=== PATIENT | female | born 1990 | race Caucasian/White ===

== ENCOUNTER 2023-08-19 14:31 | Inpatient (IN) ==
[2023-08-19] MEDS ORDERED: IOPAMIDOL 100 ML BOTTLE IV ONE (14:32)
[2023-08-19] MEDS ORDERED: 0.9 % SODIUM CHLORIDE 1,000 ML IV ONE (14:49)
[2023-08-19] MEDS ORDERED: morphine 4 MG/ML VIAL IV ONE (14:49)
[2023-08-19] MEDS ORDERED: VANCOMYCIN 1,500 MG in 0.9 % SODIUM CHLORIDE 500 ML IV ONE (14:49)
[2023-08-19] MEDS ORDERED: 0.9 % SODIUM CHLORIDE 500 ML ONE (16:18)
[2023-08-19 16:55] LABS: Basophils # (Auto) 0.02 K/mcL (0.00-0.30); Basophils % (Auto) 0.2 % (0.0-2.0); Eosinophils # (Auto) 0.22 K/mcL (0.00-0.70); Eosinophils % (Auto) 2.2 % (0.0-7.0); Hematocrit 35.4 % (34.1-44.9); Hemoglobin 12.3 g/dL (11.2-15.7); Lymphocytes # (Auto) 1.69 K/mcL (1.50-4.80); Lymphocytes % (Auto) 16.5 % (15.5-49.0); Mean Corpuscular HGB Conc 34.7 g/dL (31.0-36.0); Mean Platelet Volume 9.7 fL (8.8-12.5); Monocytes % (Auto) 5.9 % (1.0-12.0); Neutrophils % (Auto) 74.6 % (38.0-78.0); Platelet Count 215 K/mcL (140-440); RBC 3.89 M/mcL (3.59-5.38); Red Cell Distribution Width 12.1 % (11.5-14.5); WBC 10.2 K/mcL (4.5-11.0)
[2023-08-19 17:43] LABS: ALT/SGPT 14 U/L (<40); AST/SGOT 12 U/L (<32); Albumin 3.5 gm/dL (3.2-5.2); Albumin/Globulin Ratio 1.3 (1.0-2.3); Alkaline Phosphatase 114 U/L (39-117); Bilirubin,Total 0.2 mg/dL (0.1-1.0); Blood Urea Nitrogen 12 mg/dL (6-20); Calcium 8.9 mg/dL (8.6-10.4); Carbon Dioxide 23 mmol/L (22-30); Chloride 101 mmol/L (96-108); Globulin 2.8 gm/dL (2.2-3.7); Glomerular Filtration Rate 125; Glucose 108 mg/dL (70-105)
[2023-08-19] MEDS ORDERED: CLINDAMYCIN IN 0.9 % SOD CHLOR 900 MG/50 ML BAG IV ONE (18:05)
[2023-08-19 19:33] LABS: Band Neutrophils % 7 % (0-10); Eosinophils % (Manual) 3 % (0-7); Lymphocytes % 8 % (15-49); Monocytes % (Manual) 3 % (1-12); Platelet Estimate NORMAL (Normal); RBC Morphology NORMAL (Normal); Reactive Lymphocytes 5 % (0-2); Segmented Neutrophils % 74 % (38-78)
[2023-08-19] MEDS ORDERED: fentaNYL 100 MCG/2 ML VIAL IV ONE (20:48)
[2023-08-19] MEDS ORDERED: IPRATROPIUM/ALBUTEROL 3 ML AMPUL.NEB NEB PRN ×2 (21:43→22:36)
[2023-08-19] MEDS ORDERED: NALOXONE HCL 0.4 MG/ML VIAL IV PRN (21:43)
[2023-08-19] MEDS ORDERED: fentaNYL 100 MCG/2 ML VIAL IV PRN (21:43)
[2023-08-19] MEDS ORDERED: FLUMAZENIL 0.1 MG/ML ML IV PRN (21:43)
[2023-08-19] MEDS ORDERED: ONDANSETRON 4 MG/2 ML VIAL IV PRN ×2 (21:43→22:36)
[2023-08-19] MEDS ORDERED: HYDROmorphone 0.5 MG/0.5 ML SYRINGE IV PRN (21:43)
[2023-08-19] MEDS ORDERED: LACTATED RINGERS 1,000 ML IV SCH (21:45)
[2023-08-19] MEDS ORDERED: SUGAMMADEX SODIUM 200 MG/2 ML VIAL IV ONE (21:53)
[2023-08-19 22:23] LABS: Amphetamine Screen,Urine Suspect positive; Barbiturate Screen,Urine None detected; Benzodiazepines Screen,Urine None detected; Cannabinoid Screen,Urine None detected; Cocaine Screen,Urine None detected; Opiate Screen,Urine Suspect Positive; Oxycodone, Urine Screen None detected; Phencyclidine Screen,Urine None detected
[2023-08-19] MEDS ORDERED: METOCLOPRAMIDE 10 MG/2 ML VIAL IV PRN (22:36)
[2023-08-19] MEDS ORDERED: POTASSIUM CHLORIDE 20 MEQ TABLET PO PRN ×2 (22:36)
[2023-08-19] MEDS ORDERED: POLYETHYLENE GLYCOL 3350 17 GM PACKET PO PRN (22:36)
[2023-08-19] MEDS ORDERED: 0.9 % SODIUM CHLORIDE 1,000 ML IV SCH (22:36)
[2023-08-19] MEDS ORDERED: SENNOSIDES 1 TABLET PO PRN (22:36)
[2023-08-19] MEDS ORDERED: POTASSIUM CHLORIDE 40 MEQ in DEXTROSE 5% IN WATER 500 ML IV PRN (22:36)
[2023-08-19] MEDS ORDERED: VANCOMYCIN PER PHARMACY IV SCH (22:36)
[2023-08-19] MEDS ORDERED: ACETAMINOPHEN 325 MG TABLET PO PRN (22:36)
[2023-08-19] MEDS ORDERED: MAGNESIUM SULFATE 2 GM/50 ML BAG IV PRN (22:36)
[2023-08-19] MEDS ORDERED: morphine 4 MG/ML VIAL IV PRN (22:36)
[2023-08-19] MEDS: 0.9 % SODIUM CHLORIDE 10 ML SYRINGE IV SCH (23:10)
[2023-08-19] MEDS ORDERED: CEFEPIME 1 GM VIAL ONE (23:23)
[2023-08-19] MEDS: DOCUSATE SODIUM 100 MG CAPSULE PO SCH (23:33)
[2023-08-19] MEDS: CLINDAMYCIN IN 0.9 % SOD CHLOR 600 MG/50 ML BAG IV SCH (23:35)
[2023-08-19] MEDS: CEFEPIME 2 GM VIAL IV SCH (23:41)
[2023-08-20] MEDS ORDERED: POTASSIUM CHLORIDE 20 MEQ TABLET PO ONE (02:04)
[2023-08-20] MEDS: CLINDAMYCIN IN 0.9 % SOD CHLOR 600 MG/50 ML BAG IV SCH ×5 (03:49→23:26)
[2023-08-20] MEDS: 0.9 % SODIUM CHLORIDE 10 ML SYRINGE IV SCH ×3 (05:15→20:57)
[2023-08-20 06:41] LABS: Basophils # (Auto) 0.01 K/mcL (0.00-0.30); Basophils % (Auto) 0.1 % (0.0-2.0); Eosinophils # (Auto) 0.23 K/mcL (0.00-0.70); Eosinophils % (Auto) 3.1 % (0.0-7.0); Hematocrit 31.5 % (34.1-44.9); Hemoglobin 10.5 g/dL (11.2-15.7); Lymphocytes # (Auto) 1.92 K/mcL (1.50-4.80); Lymphocytes % (Auto) 26.1 % (15.5-49.0); Mean Cell Volume 93.2 fL (80.0-100.0); Mean Corpuscular HGB Conc 33.3 g/dL (31.0-36.0); Mean Platelet Volume 9.7 fL (8.8-12.5); Monocytes # (Auto) 0.44 K/mcL (0.10-0.90); Neutrophils % (Auto) 64.2 % (38.0-78.0); Platelet Count 215 K/mcL (140-440); RBC 3.38 M/mcL (3.59-5.38); Red Cell Distribution Width 12.4 % (11.5-14.5); WBC 7.4 K/mcL (4.5-11.0)
[2023-08-20 07:09] LABS: ALT/SGPT 12 U/L (<40); AST/SGOT 11 U/L (<32); Albumin 2.9 gm/dL (3.2-5.2); Albumin/Globulin Ratio 1.2 (1.0-2.3); Alkaline Phosphatase 89 U/L (39-117); Bilirubin,Direct < 0.2 mg/dL (0-0.3); Bilirubin,Total < 0.2 mg/dL (0.1-1.0); Blood Urea Nitrogen 9 mg/dL (6-20); Calcium 8.2 mg/dL (8.6-10.4); Carbon Dioxide 23 mmol/L (22-30); Chloride 105 mmol/L (96-108); Globulin 2.5 gm/dL (2.2-3.7); Glomerular Filtration Rate 125; Glucose 95 mg/dL (70-105); Lactate Dehydrogenase 165 U/L (135-225); Phosphorous 3.6 mg/dL (2.5-4.5); Triglycerides 105 mg/dL (<150); Uric Acid 3.9 mg/dL (2.5-8.0)
[2023-08-20] MEDS ORDERED: LORazepam 2 MG/ML VIAL IV PRN (08:18)
[2023-08-20] MEDS: DULoxetine 30 MG CAPSULE PO SCH (08:45)
[2023-08-20] MEDS: oxyCODONE/APAP 5/325MG TABLET PO PRN ×3 (08:45→17:55)
[2023-08-20] MEDS: GABAPENTIN 300 MG CAPSULE PO SCH ×4 (08:46→20:58)
[2023-08-20] MEDS: POLYETHYLENE GLYCOL 3350 17 GM PACKET PO SCH (08:46)
[2023-08-20] MEDS ORDERED: ENOXAPARIN 40 MG/0.4 ML SYRINGE SQ SCH (09:00)
[2023-08-20] MEDS ORDERED: CELECOXIB 100 MG PO PRN (09:02)
[2023-08-20] MEDS: VERAPAMIL HCL 80 MG TABLET PO SCH ×2 (10:34→20:57)
[2023-08-20] MEDS: DULoxetine 20 MG CAPSULE PO SCH (10:34)
[2023-08-20] MEDS: VANCOMYCIN 1,250 MG in 0.9 % SODIUM CHLORIDE 500 ML IV SCH ×2 (10:35→17:56)
[2023-08-20] MEDS: DOCUSATE SODIUM 100 MG CAPSULE PO SCH ×2 (10:35→20:57)
[2023-08-20] MEDS: ENOXAPARIN 40 MG/0.4 ML SYRINGE SQ SCH ×2 (10:35→21:08)
[2023-08-20] MEDS: Tiotropium-Olodaterol [Stiolto Respimat] 2.5-2.5 INH SCH (10:36)
[2023-08-20] MEDS: CEFEPIME 2 GM VIAL IV SCH ×2 (10:52→21:08)
[2023-08-20] MEDS: lamoTRIgine 25 MG TABLET PO SCH (20:40)
[2023-08-20] MEDS: MONTELUKAST 10 MG TABLET PO SCH (20:58)
[2023-08-20] MEDS: PRAZOSIN 1 MG CAPSULE PO SCH (20:58)
[2023-08-20] MEDS: QUEtiapine 25 MG TABLET PO SCH (20:59)
[2023-08-21] MEDS: VANCOMYCIN 1,250 MG in 0.9 % SODIUM CHLORIDE 500 ML IV SCH ×3 (00:31→17:12)
[2023-08-21] MEDS: CLINDAMYCIN IN 0.9 % SOD CHLOR 600 MG/50 ML BAG IV SCH ×2 (05:58→14:53)
[2023-08-21] MEDS: 0.9 % SODIUM CHLORIDE 10 ML SYRINGE IV SCH ×3 (05:58→20:50)
[2023-08-21] MEDS: OMEPRAZOLE 20 MG CAPSULE PO SCH (08:35)
[2023-08-21] MEDS: DOCUSATE SODIUM 100 MG CAPSULE PO SCH ×2 (08:35→20:34)
[2023-08-21] MEDS: CEFEPIME 2 GM VIAL IV SCH ×2 (08:35→20:50)
[2023-08-21] MEDS: GABAPENTIN 300 MG CAPSULE PO SCH ×4 (08:35→20:34)
[2023-08-21] MEDS: DULoxetine 20 MG CAPSULE PO SCH (08:35)
[2023-08-21] MEDS: VERAPAMIL HCL 80 MG TABLET PO SCH ×2 (08:36→20:35)
[2023-08-21] MEDS: DULoxetine 30 MG CAPSULE PO SCH (08:36)
[2023-08-21] MEDS: ENOXAPARIN 40 MG/0.4 ML SYRINGE SQ SCH ×2 (08:36→20:37)
[2023-08-21] MEDS: POLYETHYLENE GLYCOL 3350 17 GM PACKET PO SCH (08:37)
[2023-08-21] MEDS: Tiotropium-Olodaterol [Stiolto Respimat] 2.5-2.5 INH SCH ×2 (10:12→10:15)
[2023-08-21 10:39] LABS: ALT/SGPT 14 U/L (<40); AST/SGOT 12 U/L (<32); Albumin/Globulin Ratio 0.9 (1.0-2.3); Alkaline Phosphatase 97 U/L (39-117); Bilirubin,Direct < 0.2 mg/dL (0-0.3); Bilirubin,Total 0.2 mg/dL (0.1-1.0); Blood Urea Nitrogen 7 mg/dL (6-20); Calcium 8.4 mg/dL (8.6-10.4); Carbon Dioxide 24 mmol/L (22-30); Chloride 108 mmol/L (96-108); Globulin 3.2 gm/dL (2.2-3.7); Glomerular Filtration Rate 125; Glucose 120 mg/dL (70-105); Lactate Dehydrogenase 188 U/L (135-225); Phosphorous 3.9 mg/dL (2.5-4.5); Triglycerides 109 mg/dL (<150); Uric Acid 4.3 mg/dL (2.5-8.0)
[2023-08-21 10:43] LABS: Basophils # (Auto) 0.03 K/mcL (0.00-0.30); Basophils % (Auto) 0.5 % (0.0-2.0); Eosinophils # (Auto) 0.22 K/mcL (0.00-0.70); Hematocrit 35.1 % (34.1-44.9); Hemoglobin 11.7 g/dL (11.2-15.7); Lymphocytes # (Auto) 1.81 K/mcL (1.50-4.80); Lymphocytes % (Auto) 32.8 % (15.5-49.0); Mean Cell Volume 92.6 fL (80.0-100.0); Mean Corpuscular HGB Conc 33.3 g/dL (31.0-36.0); Mean Platelet Volume 9.1 fL (8.8-12.5); Monocytes # (Auto) 0.33 K/mcL (0.10-0.90); Neutrophils % (Auto) 55.4 % (38.0-78.0); Platelet Count 262 K/mcL (140-440); RBC 3.79 M/mcL (3.59-5.38); Red Cell Distribution Width 12.3 % (11.5-14.5); WBC 5.5 K/mcL (4.5-11.0)
[2023-08-21] MEDS: LABETALOL HCL 20 MG/4 ML VIAL IV PRN ×2 (17:41→23:29)
[2023-08-21] MEDS: oxyCODONE/APAP 5/325MG TABLET PO PRN ×2 (17:42→23:28)
[2023-08-21] MEDS: QUEtiapine 25 MG TABLET PO SCH (20:34)
[2023-08-21] MEDS: MONTELUKAST 10 MG TABLET PO SCH (20:34)
[2023-08-21] MEDS: lamoTRIgine 25 MG TABLET PO SCH (20:35)
[2023-08-21] MEDS: PRAZOSIN 1 MG CAPSULE PO SCH (20:35)
[2023-08-22] MEDS: VANCOMYCIN 1,250 MG in 0.9 % SODIUM CHLORIDE 500 ML IV SCH ×3 (00:57→16:22)
[2023-08-22] MEDS: 0.9 % SODIUM CHLORIDE 10 ML SYRINGE IV SCH ×2 (05:13→14:34)
[2023-08-22] MEDS: oxyCODONE/APAP 5/325MG TABLET PO PRN ×3 (05:15→15:49)
[2023-08-22] MEDS: OMEPRAZOLE 20 MG CAPSULE PO SCH (07:29)
[2023-08-22] MEDS: LABETALOL HCL 20 MG/4 ML VIAL IV PRN ×2 (07:29→13:42)
[2023-08-22] MEDS: POLYETHYLENE GLYCOL 3350 17 GM PACKET PO SCH (08:20)
[2023-08-22] MEDS: VERAPAMIL HCL 80 MG TABLET PO SCH (08:20)
[2023-08-22] MEDS: ENOXAPARIN 40 MG/0.4 ML SYRINGE SQ SCH (08:20)
[2023-08-22] MEDS: DOCUSATE SODIUM 100 MG CAPSULE PO SCH (08:20)
[2023-08-22] MEDS: GABAPENTIN 300 MG CAPSULE PO SCH ×3 (08:20→17:26)
[2023-08-22] MEDS: DULoxetine 30 MG CAPSULE PO SCH (08:20)
[2023-08-22] MEDS: DULoxetine 20 MG CAPSULE PO SCH (08:20)
[2023-08-22] MEDS: CEFEPIME 2 GM VIAL IV SCH (08:22)
[2023-08-22] MEDS: Tiotropium-Olodaterol [Stiolto Respimat] 2.5-2.5 INH SCH (08:23)
[2023-08-22] MEDS ORDERED: DULoxetine 20 MG CAPSULE PO SCH (09:00)
[2023-08-22] MEDS ORDERED: FLUZONE QUAD QS2023-24/PF 60 MCG/0.5 ML SYRINGE IM ONE (17:00)
[2023-08-31 10:32] LABS: Opiate Confirmation Positive
== END 2023-08-22 18:20 | disposition home or self-care (01) | DRG 603 ==
LOC: ED 14:31 → SUR 20:52 → ICU 22:33 → MEDSUR 08-20 06:21
PROVIDERS: ADMIT Internal Medicine; ATTEND Internal Medicine